=== PATIENT | female | born 1955 ===

== ENCOUNTER 2022-09-15 08:08 | Outpatient (CLI) | payer OTHER | END 2022-09-15 11:13 | disposition home or self-care (01) | LOC: RX STUDY 08:08 → EDBD 08:08 → RX STUDY 11:13 | PROVIDERS: ATTEND Internal Medicine Gastroenterology | DX: R13.10 Dysphagia, unspecified (principal); K21.9 Gastro-esophageal reflux disease without esophagitis ==